=== PATIENT | male | born 1950 | race Caucasian/White ===

== ENCOUNTER → 2021-11-16 09:43 | Outpatient (CLI) | payer OTHER, SELFPAY | PROVIDERS: Visit Provider Nurse Practitioner | DX: U07.1 COVID-19 (principal) | CPT/HCPCS: C9803; U0003; U0005 ==

== ENCOUNTER → 2023-01-11 15:41 | Outpatient (CLI) | payer OTHER, SELFPAY ==
[2023-01-11 16:46] LABS: Basophils % 1.5 % (0.1-2.0); Eosinophils # 0.1 K/mm3 (0.0-0.4); Eosinophils % 2.2 % (0.1-12.0); Hematocrit 33.6 % (42.0-52.0); Hemoglobin 10.2 g/dL (14.1-18.0); Lymphocytes # 0.5 K/mm3 (0.7-4.5); Lymphocytes % 18.4 % (10-50); Mean Corpuscular HGB Conc 30.3 g/dL (31.8-35.4); Mean Corpuscular Hemoglobin 24.5 pg (27.0-31.2); Mean Corpuscular Volume 80.8 fl (80-94); Monocytes # 0.4 K/mm3 (0.1-1.0); Monocytes % 12.6 % (1.7-9.3); Neutrophils # 1.8 K/mm3 (1.8-7.8); Neutrophils % 65.4 % (37.0-80.0); Platelet Count 152 K/mm3 (142-424); Red Blood Count 4.16 M/mm3 (4.60-6.20); Red Cell Distribution Width 17.5 % (11.5-17.5); White Blood Count 2.8 K/mm3 (4.8-10.8)
[2023-01-11 17:44] LABS: Alanine Aminotransferase 23 U/L (12-78); Albumin/Globulin Ratio 1.4 (1.1-1.8); Alkaline Phosphatase 77 U/L (38-126); Aspartate Amino Transferase 34 U/L (17-59); Bilirubin,Total 0.7 mg/dl (0.2-1.3); Blood Urea Nitrogen 17 mg/dl (9-20); Carbon Dioxide 24 mmol/L (22.0-30.0); Chloride 107 mmol/L (98-107); Estimated Glomerular Filt Rate 59 ml/min (>60); GFR (African American) 72 ML/MIN (>60); Globulin 2.9 g/dL (1.3-3.2); Glucose 155 mg/dl (74-100); Sodium 140 mmol/L (136-145); Total Protein,Serum 6.9 g/dl (6.3-8.2)
[2023-01-11 18:13] LABS: Hemoglobin A1C 6.1 % (4.0-6.0)
[2023-01-11 18:19] LABS: 25-OH Vitamin D, Total 44.1 ng/mL (30-100)
[2023-01-11 20:53] LABS: Iron 33 ug/dL (49-181)
[2023-01-11 21:02] LABS: Total Iron Binding Capacity 414 ug/dL (261-462)
[2023-01-11 21:30] LABS: Ferritin 10.3 ng/ml (17.9-464)
[2023-01-13 08:23] LABS: PSA, Free 0.28 ng/mL; Prostate Specific Ag 1.3 ng/mL (0.0-4.0); Transferrin 358 mg/dL (177-329)
== END ==
PROVIDERS: PCP Nurse Practitioner Family; Visit Provider Nurse Practitioner Family
DX: I10 Essential (primary) hypertension (principal); E11.9 Type 2 diabetes mellitus without complications; E61.1 Iron deficiency; E55.9 Vitamin D deficiency, unspecified; N52.8 Other male erectile dysfunction
CPT/HCPCS: 36415; 80053; 82306; 82728; 83036; 83540; 83550; 84153; 84154; 84466; 85025

== ENCOUNTER 2025-02-04 10:12 | Emergency (ER) | payer OTHER, SELFPAY ==
[2025-02-04] VITALS (9 sets, daily range): BP systolic 98–113; BP diastolic 58–75; PULSE 75–91; RESP 12–18; TEMP 36.9; O2SAT 97–100; BMI 37.5
[2025-02-04 10:42] LABS: Microscopic, Urine URINE MICROSCOPIC (MICROSCOPIC)
[2025-02-04 10:44] LABS: Appearance,Urine CLEAR (Clear); Bilirubin,Urine Negative (Negative); Blood, Urine MODERATE (Negative); Color,Urine YELLOW (Yellow); Glucose,Urine (UA) 500 (Negative); Ketones,Urine Negative (Negative); Leukocyte Esterase,Urine Negative (Negative); Nitrate,Urine Negative (Negative); Protein,Urine Negative (Negative); Urobilinogen,Urine 0.2 EU/dl (0.2)
[2025-02-04 10:55] LABS: Squamous Epithelial Cell,Urine Occasional #/hpf (0-5)
[2025-02-04] MEDS: KETOROLAC 30MG/ML VIAL 15 MG IV (11:18)
[2025-02-04 11:22] LABS: Basophils % 0.9 % (0.1-2.0); Eosinophils # 0.1 K/mm3 (0.0-0.4); Hematocrit 29.6 % (42.0-52.0); Hemoglobin 7.9 g/dL (14.1-18.0); Lymphocytes # 0.5 K/mm3 (0.7-4.5); Lymphocytes % 11.7 % (10-50); Mean Corpuscular HGB Conc 26.7 g/dL (31.8-35.4); Mean Corpuscular Hemoglobin 19.5 pg (27.0-31.2); Mean Corpuscular Volume 72.9 fl (80-94); Mean Platelet Volume 10.2 fl (7.4-10.4); Monocytes # 0.6 K/mm3 (0.1-1.0); Neutrophils # 3.3 K/mm3 (1.8-7.8); Neutrophils % 72.2 % (37.0-80.0); Platelet Count 123 K/mm3 (142-424); Red Blood Count 4.06 M/mm3 (4.60-6.20); Red Cell Distribution Width 18.3 % (11.5-17.5); White Blood Count 4.5 K/mm3 (4.8-10.8)
[2025-02-04 11:28] LABS: Chloride 103 mmol/L (98-107)
[2025-02-04 11:29] LABS: Albumin Level 3.9 g/dl (3.5-5.0); Potassium 3.9 mmoL/L (3.5-5.1); Sodium 136 mmol/L (136-145)
[2025-02-04 11:31] LABS: Anion Gap 7.9 mEq/L (5-15); Blood Urea Nitrogen 29 mg/dl (9-20); Carbon Dioxide 29 mmol/L (22.0-30.0); Creatinine Clearance Estimated 57 mL/min (50-200); Estimated Glomerular Filt Rate 39 ml/min (>60); GFR (African American) 48 ML/MIN (>60)
[2025-02-04 11:32] LABS: Alanine Aminotransferase 29 U/L (12-78); Albumin/Globulin Ratio 1.4 (1.1-1.8); Alkaline Phosphatase 104 U/L (38-126); Aspartate Amino Transferase 44 U/L (17-59); Bilirubin,Total 1.4 mg/dl (0.2-1.3); Calcium 9.2 mg/dl (8.4-10.2); Globulin 2.7 g/dL (1.3-3.2); Glucose 118 mg/dl (74-100); Total Protein,Serum 6.6 g/dl (6.3-8.2)
--- NOTE | 2025-02-04 11:36 | CT_ITS ---
FINAL REPORT TECHNIQUE: Thin section axial images were obtained through the abdomen and pelvis after contrast injection per CT angiogram protocol. Multiplanar reconstruction images were obtained from the axial data. This exam was performed with techniques to keep radiation dose as low as reasonably achievable. This includes automated exposure control, adjustment of the MA and KVP, and iterative reconstruction technique. CLINICAL HISTORY: hematuria, BP, anemia COMPARISON: None FINDINGS: CTA: No abdominal aortic aneurysm or aortic dissection. The celiac axis, superior mesenteric artery, and inferior mesenteric artery are patent without stenosis. The renal arteries are patent, with calcifications at the origins of the renal arteries. Mild right renal artery stenosis is noted. The common iliac arteries and the internal and external iliac arteries are patent. No significant stenosis. NONVASCULAR: A small right pleural effusion is present, with right lower lobe atelectasis. Mild cardiomegaly is present. The gallbladder is present. The liver has a small, nodular contour consistent with cirrhosis. Small esophageal varices are present. There is a tiny cystic focus in the dome of the liver, that likely represents a hepatic cyst. Splenomegaly is noted, the spleen measuring 16.6 cm. Gallstones are present in a contracted gallbladder. Bilateral renal cysts are present, without evidence of hydronephrosis or a solid mass in either kidney. The GI tract is without acute abnormality. The appendix is not well-visualized, however no secondary signs of appendicitis are noted. There is mild wall thickening of the proximal colon, nonspecific and likely related to ascites. Moderate abdominal and pelvic ascites are present. There is a ventral hernia in the anterior abdominal wall containing fat and ascites. No lymphadenopathy is noted. No acute osseous abnormality. IMPRESSION: No abdominal aortic aneurysm or dissection is identified. Changes of cirrhosis are noted in the liver, with splenomegaly and small esophageal varices. There is a ventral hernia which contains fat and ascites. There is a moderate amount of abdominal and pelvic ascites present. Reviewed, Interpreted and Dictated by Meeta Claros MD Transcribed by Becky Abraham Authenticated and [facility]
--- NOTE | 2025-02-04 11:36 | ED_ITS ---
Discharge Plan Disposition Patient Disposition: Home, Self-Care Prescriptions Prescriptions: New nystatin 100,000 unit/gram ointment 1 applic topical TID Qty: 30 0RF Referrals Follow up/Referrals: Provider,Referral, MD [Primary Care Provider] - See instructions Activity Restrictions/Add. Instructions Additional Instructions/Restrictions: Call your family doctor to establish care for this visit to the emergency department and schedule follow-up within 48 hours to ensure improvement. If you have any worsening of your condition or any other concerning signs or symptoms, return to the emergency department or your primary care doctor for further evaluation. Talk to your family doctor about 1) iron infusions 2) urology referral 3) decreasing Bumex from 2 mg to 1 mg daily Nystatin called into pharmacy for balanitis. Clinical Impressions Clinical Impression: JELLY (acute kidney injury), Hematuria, Anemia, Balanitis Print Language Print Language: Romansh Discharge ED Provider: Shree Watt General Adult HPI General Chief complaint: PAIN Stated complaint: back pain Time Seen by Provider: 02/04/25 10:19 Mode of Arrival: EMS Source of Information: Patient Description of Symptoms (Recalled from ER Triage Doc. by RN): pt presents to ED with c/o lower back pain. pt reports that symptoms ongoing for the past week but symptoms worsening since yesterday. also reports that blood in urine that began yesterday History of Present Illness HPI narrative: Please note that above description of symptoms, in this electronic medical record under categorization of recalled from ER triage doctor by RN are reflective of an initial nursing assessment, however, is not reflective of my full history and physical exam that was personally taken and clarified. Consequentially, this preceding description of symptoms, which may include the patient's categorized chief complaint in the EMR, do not reflect my personal clinical impression, and the ultimate description of history of present illness and patient stated complaints should be deferred to this section of the note. Unless stated otherwise or congruent with this section of the note, additional signs, symptoms, or incongruence should be interpreted as inaccurate with my clinical impression. Related Data Previous Rx's ?Medication ?Instructions ?Recorded nystatin 100,000 unit/gram topical 1 applic topical TID #30 grams 02/04/25 ointment Allergies Allergy/AdvReac Type Severity Reaction Status Date / Time NKDA Allergy Unknown Uncoded 10/31/17 15:37 [facility] Disclaimer: The information contained in this section may have been updated after the patient was seen, as this information can be updated by other users. Social History Smoking Status: Never smoker alcohol intake: never current occupational status: retired Travel in the last 8 weeks: None ROS Obtained: Yes All systems reviewed & no additional complaints except as documented Physical Exam General General appearance: alert, in no apparent distress, obese and other (Chronically ill, pale) Head Head exam: atraumatic and normocephalic Eye Eye exam: Present normal appearance, PERRL and EOMI Neck Neck exam: Present normal inspection, full ROM and trachea midline Respiratory Respiratory exam: Present normal lung sounds bilaterally; Absent respiratory distress, wheezes, stridor, accessory muscle use or prolonged expiratory phase Cardiovascular Cardiovascular exam: Present regular rate, normal rhythm and other (Pulses equal symmetric in upper and lower extremities) Abdominal Exam Abdominal exam: Present soft; Absent distention, tenderness, guarding, rebound, rigidity or pulsatile mass Extremities Exam Extremities exam: Absent edema Neurological Exam Neurological exam: Present alert, oriented X3 and CN II-XII intact; Absent motor sensory deficit Skin Skin exam: Present warm and dry; Absent diaphoresis or erythema Medical Decision Making Medical Records Medical records reviewed: Yes I reviewed the patient's medical records. Screening: Per USPSTF and CDC recommendations, given the prevalence of disease in our region, it is our hospital?s policy to screen for HIV and viral Hepatitis for all patients aged 18 and over and those with ongoing risk factors. Damian Inquiry Pt receiving controlled substance: No Damian was queried for this patient: No Vital Signs: 02/04/25 10:17 02/04/25 10:22 02/04/25 10:30 Temperature 98.4 F Temperature Source Oral Pulse Rate 84 86 Pulse Rate [Left Radial] 87 Respiratory Rate 18 Blood Pressure 113/75 99/71 L Blood Pressure [Right Arm] 113/75 Blood Pressure Mean [Right Arm] 87 02 Sat by Pulse Oximetry 99 99 97 Oxygen Delivery Method Room Air 02/04/25 11:00 02/04/25 11:33 02/04/25 12:30 Temperature Temperature Source Pulse Rate 90 91 H 75 Pulse Rate [Left Radial] Respiratory Rate Blood Pressure 111/71 101/66 L 98/58 L Blood Pressure [Right Arm] Blood Pressure Mean [Right Arm] 02 Sat by Pulse Oximetry 97 100 98 Oxygen Delivery Method 02/04/25 13:30 Temperature Temperature Source Pulse Rate 77 Pulse Rate [Left Radial] Respiratory Rate Blood Pressure 104/64 L Blood Pressure [Right Arm] Blood Pressure Mean [Right Arm] 02 Sat by Pulse Oximetry 97 Oxygen Delivery Method Lab Data Lab Results 02/04/25 10:20: Urine Color Yellow, Urine Appearance Clear, Urine pH 7.0, Ur Specific [place] 1.010, Urine Protein Negative, Urine Glucose (UA) 500, Urine Ketones Negative, Urine Blood Moderate, Urine Nitrate Negative, Urine Bilirubin Negative, Urine Urobilinogen 0.2, Ur Leukocyte Esterase Negative, Urine RBC 10- 20, Urine WBC None, Ur Squamous Epith Cells Occasional, Urine Bacteria None 02/04/25 11:16: WBC 4.5 L, RBC 4.06 L, Hgb 7.9 L, Hct 29.6 L, MCV 72.9 L, MCH 19.5 L, MCHC 26.7 L, RDW 18.3 H, Plt Count 123 L, MPV 10.2, Neut % (Auto) 72.2, Lymph % (Auto) 11.7, [place] % (Auto) 13.0 H, Eos % (Auto) 2.0, Baso % (Auto) 0.9, Neut # (Auto) 3.3, Lymph # (Auto) 0.5 L, [place] # (Auto) 0.6, Eos # (Auto) 0.1, Baso # (Auto) 0.0, Sodium 136, Potassium 3.9, Chloride 103, Carbon Dioxide 29, Anion Gap 7.9, BUN 29 H, Creatinine 1.70 H, Estimated Creat Clear 57, Estimated GFR 39 L, Est GFR ( Amer) 48 L, Glucose 118 H, Calcium 9.2, Total Bilirubin 1.4 H, AST 44, ALT 29, Alkaline Phosphatase 104, Total Protein 6.6, Albumin 3.9, Globulin 2.7, Albumin/Globulin Ratio 1.4, HIV Ag/Ab Combo Qual Negative 02/04/25 11:16 02/04/25 11:16 Orders (Tests/Meds): ED MEDICATIONS Discontinued Medications Generic Name Dose Route Start Last Admin Trade Name Freq PRN Reason Stop Dose Admin Lactated Ringer's 1,000 mls @ 999 mls/hr 02/04/25 11:59 02/04/25 12:07 Lactated Ringer's 1000 Ml Bag IV 02/04/25 12:59 999 mls/hr .Q1H1M ONE Administration Iopamidol 70 ml 02/04/25 12:10 02/04/25 12:12 Iopamidol-370 (76%);100ml Bottle IV 02/04/25 12:11 70 ml ONCE ONE Administration Ketorolac Tromethamine 15 mg 02/04/25 11:12 02/04/25 11:18 Ketorolac 30mg/Ml Vial IV 02/04/25 11:13 15 mg ONCE ONE Administration Sodium Chloride 50 ml 02/04/25 12:10 02/04/25 12:11 0.9 % Sodium Chloride 50 Ml Vial IV 02/04/25 12:11 50 ml ONCE ONE Administration Sodium Chloride 10 ml 02/04/25 12:10 02/04/25 12:11 Sodium Chloride 0.9% 10ml Syr (Rad Only) IV 02/04/25 12:11 10 ml ONCE ONE Administration ORDERS Category Date Time Status CT angio abdomen pelvis Stat Cat Scan 02/04/25 11:36 Completed CBC w/Auto Diff [Complete Blood Count Auto Diff] Stat Lab 02/04/25 11:16 Completed CMP [Comprehensive Metabolic Panel] Stat Lab 02/04/25 11:16 Completed HIV Combo Stat Lab 02/04/25 11:16 Completed Hepatitis C Ab Qual. W/ RFX Stat Lab 02/04/25 11:16 Received UA [Urinalysis and Microscopic] Stat Lab 02/04/25 10:20 Completed Medical Decision Narrative: 75-year-old male history of hypertension, hyperlipidemia, CAD, cirrhosis on chronic Levaquin presenting with flank pain and hematuria. Patient has been having back pain on and off for about a week. Family states that they noticed blood in his urine yesterday, 02/03 into today. Patient also been urinating more frequently than usual. No fevers or chills, vomiting, syncope, neurologic deficits, abdominal pain, or any other concerns. History was obtained via conversation with patient and family. On arrival, patient hemodynamically stable, alert, oriented x4, appropriate, GCS 15, moving all extremities spontaneously, pupils equal and reactive to light. Full physical exam performed and significant for chronically ill, pale male who speaking in full sentences in no acute distress. He does have no outward signs of abnormality. Abdomen soft, nontender, nondistended. No flank tenderness, no midline back tenderness. Cardiopulmonary exam without focal abnormalities as well, but patient does look appearing. Uncircumcised exam with no obvious blood, but what appears to be Ruth. Differential includes UTI, nephrolithiasis, aortic pathology, mesenteric ischemia, among other Patient placed on continuous cardiac monitoring and continuous pulse ox with initial blood pressure 113/75, heart rate 84, saturation 99% on room air. Patient was given Toradol IV for symptomatic management and correction of underlying abnormalities. Workup independently interpreted and significant for nonactionable white count, however hemoglobin is 7.9 with low MCV, low MCH, low MCHC and elevated RDW. Thrombocytopenia, this is likely secondary to cirrhosis. Chemistry with JELLY creatinine 1.7 and BUN 29. Urinalysis with isolated blood. On independent interpretation of imaging, acute intra-abdominal abnormality. No obvious source of bleeding. See radiology read for full review of final results. On reevaluation, patient still resting comfortably. Nystatin called into pharmacy for balanitis. Prolonged discussion had with patient and , recommended holding Bumex for 2 days, decreasing to 1 mg from 2 mg when restarting, calling family doctor for urology referral as well as discussion of iron infusions and close outpatient follow-up. Both patient and voiced their understanding. given patient presentation, workup, history, this most likely represents anemia of chronic disease as well as iron deficiency anemia, hematuria, back pain JELLY, overdiuresis. Because patient at baseline without signs or symptoms of clinical decompensation, deemed appropriate for discharge. Results were relayed to patient who voiced understanding and were agreeable to outpatient management and follow up. I discussed my clinical impression with patient and answered all questions. At this time, the evidence for any other entities in the differential is insufficient to warrant any further testing or ED observation. This was explained as well. Advisory was given that persistent or worsening symptoms require further evaluation. I confirmed the understanding of this discussion. Geodetic Advisor disclaimer Much of this encounter note is an electronic electrical accessories i assembler spoken language to printed text. Electronic electrical accessories i assembler of the spoken language may permit errors. Although I have reviewed the note, some errors may still exist. Critical Care Critical Care Time Critical Care Time: No
[2025-02-04] MEDS: LACTATED RINGERS 1000ML 1,000 ML 999 ML IV (12:07)
[2025-02-04] MEDS: SODIUM CHLORIDE 0.9% 10ML SYR (RAD ONLY) 10 ML IV (12:11)
[2025-02-04] MEDS: 0.9 % SODIUM CHLORIDE 50 ML VIAL IV (12:11)
[2025-02-04] MEDS: IOPAMIDOL-370 (76%);100ML BOTTLE 70 ML IV (12:12)
[2025-02-04 12:39] LABS: HIV Combo NEGATIVE (Negative)
[2025-02-04 15:37] LABS: Hepatitis C Ab Qual. W/ RFX NEGATIVE (Negative)
== END 2025-02-04 14:47 | disposition home or self-care (01) ==
PROVIDERS: Emergency Provider Emergency Medicine
DX: N17.9 Acute kidney failure, unspecified (principal); R31.9 Hematuria, unspecified; I25.10 Atherosclerotic heart disease of native coronary artery without angina pectoris; K74.60 Unspecified cirrhosis of liver; I10 Essential (primary) hypertension; E78.5 Hyperlipidemia, unspecified; M54.50 Low back pain, unspecified; D50.8 Other iron deficiency anemias; N48.1 Balanitis
CPT/HCPCS: 74174; 80053; 81001; 85025; 86803; 87389; 96361; 96374; 99285; J1885; J7120; Q9967